=== PATIENT | male | born 1960 | race Caucasian/White ===

== ENCOUNTER → 2017-02-24 | Outpatient (CLI) | payer OTHER ==
[2017-02-24 13:35] VITALS: BP 154/93; PULSE 62; RESP 16; TEMP 97.6
--- NOTE | 2017-02-25 08:37 | P.CONS ---
History of Present Illness - Reason for Consult Consult date: 02/24/17 - History of Present Illness The initial consultation visit for this 56 years old male with a chronic history of severe low back pain and neck pain, pain in the low back area more intense and radiated to the posterior lateral aspect of the lower extremity, with occasional numbness, he had lumbar laminectomy surgery done by Dr. ho 2008, and after the surgery he continued to have, still the pain increased recently he denies any motor or sensory deficit he denies any lower night sweats and no change in the bowel movement or urination, muscle patient complaining of severe neck pain with radiation to the upper extremity with some numbness and tingling sensation Past Medical History Past Medical History: Hyperlipidemia, Hypertension Additional Past Medical History / Comment(s): CHRONIC BACK PAIN. Hx of kidney stones. Gout - 2010 History of Any Multi-Drug Resistant Organisms: None Reported Past Surgical History: Back Surgery, Hernia Repair, Orthopedic Surgery, Tonsillectomy Additional Past Surgical History / Comment(s): back surgery (laminectomy L-5, S -1 - right side), umbilical hernia. Ankle ORIF left and right Past Anesthesia/Blood Transfusion Reactions: No Reported Reaction Smoking Status: Current every day smoker Medications and Allergies Home Medications Medication Instructions Recorded Confirmed Type Fenofibrate [Lofibra] 54 mg PO DAILY 05/18/14 02/24/17 History Lisinopril [Zestril] 30 mg PO QAM 05/18/14 02/24/17 History Simvastatin [Zocor] 10 mg PO DAILY 05/18/14 02/24/17 History amLODIPine [Norvasc] 2.5 mg PO QAM 05/18/14 02/24/17 History amLODIPine [Norvasc] 5 mg PO HS 05/18/14 02/24/17 History Ibuprofen [Motrin] 800 mg PO Q8HR PRN 05/23/14 02/24/17 History Allergies Allergy/AdvReac Type Severity Reaction Status Date / Time aspirin Allergy Rash/Hives Verified 05/23/14 13:20 Physical Exam Vitals: Vital Signs Temp Pulse Resp BP Pulse Ox 02/24/17 13:29 97.6 F 62 16 154/93 96 Social history : smoker , NO ETOH , NO Illegal drug Review of Systems : 1- Constitutional : no chills , no fever , no night sweats , 2- Ears : no ear discharge , no change in hearing 3-Nose, Mouth ,Throat ; no bleeding gums, no sore throat , no epistaxis , 4-Cardiovascular : Denies chest pain, , no orthopnea , no palpitation 5-Respiratory : Denies cough , no dyspnea , no hemoptysis 6-Gastrointestinal :, no change in bowel habits , no coffee- ground emesis . 7-Genitourinary : No hematuria , no discharge , no incontinence, 8-Musculoskeletal : No gait dysfunction , report low back pain , and neck pain , 9- Neurological : no ataxia , no tremor , no sezure , 10-Psychatric , no suicidal ideation no hallucination 11- Endocrine : no cold intolerence , no polyuria , no polydypsia , 12-Hematologic : no easy bleeding , no easy brusing , 13-Allergic / immunology : no angioedema , no wheezing ,no allergic rhinitis 14-Integumentary : no brttle nails , no change hair / nails , no foot/leg ulcers . Physical Examinations : 1-Constitutional : Cooperative , not in acute distress . 2-HEENT : nech ; supple , no Lymphadenopathy , no Thyromegaly , :eyes , no icterus, no photophobia . ENT : , normal oropharynx , no Thrush 3- Respiratory : Chest clear to auscultations Bilaterally , no wheezing . 4- Cardiovascular : regular rate and rhythem , S1 , S2 , no S3 , no S4. 5- Gastrointestinal: abdomen soft no tenderness , no organomegally . 6- Genitourinary : Defferred . 7-Integumentary : No cellulitis , no ulcers , normal skin turgor , no cyanotic . 8- neurologic : Cranial nerve II to XII intact , no focal neurological deffecit 9-psychatric : alert , oriented X 3 , appropriate affect , intact judgment and insight . 10-Lymphatic : no Lymphadenopathy. 11- musculoskeltal: normal gait Cervical Spine motor stregnth in the deltoid and biceps, normal right side , normal Left side motor stregnth biceps and the wrist extensors normal right side ,normal left side . motor stregnth in the triceps muscle . normal Right side , normal Left side deep tendon reflexes normal at the biceps , normal at Brachioradialis , normal at triceps. positive cervical facet loading test . Lumber spine moter stegnth lower extremities ,thigh and legs 5/5 Right side , 5/5 Left side deep tendon reflexes : normal Knee Jerk , normal ankle Jerk positive lumber facet Loading Test Range of motion of the lumbar spine Flexion 30 degrees, extension 10 degrees strait leg raising test , positive at 30 degree Fabere test positive RT and positive LT . Assessment and Plan Plan: Assessment and plan= chronic low back pain secondary to , lumbar spondylosis with lumbar facet arthropathy , failed back surgery syndrome and lumbar area Chronic neck pain secondary to cervical spondylosis. Patient had more pain in the lumbar area , and he wished to start the treatment of the lumbar spine, patient could benefit from diagnostic medial branch block lumbar area at L3/L4 5/L5-S1 with done diagnostic block twice and if he had more than 50% improvement and we will proceed with a radiofrequency ablation of the medial branch lumbar area
== END | disposition home or self-care (01) ==
LOC: PNWHC3 13:15
PROVIDERS: ATTEND Specialist
DX: M47.816 Spondylosis without myelopathy or radiculopathy, lumbar region (principal); M47.812 Spondylosis without myelopathy or radiculopathy, cervical region; M46.86 Other specified inflammatory spondylopathies, lumbar region; F17.200 Nicotine dependence, unspecified, uncomplicated; E78.5 Hyperlipidemia, unspecified; I10 Essential (primary) hypertension; Z88.6 Allergy status to analgesic agent; Z79.1 Long term (current) use of non-steroidal anti-inflammatories (NSAID); Z79.899 Other long term (current) drug therapy
CPT/HCPCS: 99201

== ENCOUNTER 2017-03-23 06:34 | Day surgery (SDC) | payer OTHER ==
[2017-03-22 10:56] VITALS: BMI 39.0
[2017-03-23 06:53] VITALS: TEMP 97.5
[2017-03-23] MEDS ORDERED: LACTATED RINGERS 1,000 ML IV ONE (06:55)
[2017-03-23] MEDS ORDERED: LIDOCAINE 1% 20 ML VIAL (10MG/ML) FOR IV START INTRADERMA ONE (06:55)
[2017-03-23] MEDS ORDERED: LACTATED RINGERS 1,000 ML IV SCH (07:15)
--- NOTE | 2017-03-23 07:47 | P.PCN ---
Date of Procedure: 03/23/17 Surgeon: Donnie Yanes Pathology: none sent Condition: stable Disposition: PACU Description of Procedure: PREOPERATIVE DIAGNOSIS: L3-L4, L4-L5, and L5-S1 spondylosis without myelopathy and facet arthropathy. POSTOPERATIVE DIAGNOSIS: L3-L4, L4-L5, and L5-S1 spondylosis without myelopathy and facet arthropathy. PROCEDURE DESCRIPTION: Patient presents for L3-L4, L4-L5 and L5-S1 diagnostic medial branch blocks under fluoroscopic guidance. The procedure is performed using fluoroscopic guidance during needle placement to assure proper position and maximize safety. ANESTHESIA: Local with 1% lidocaine; conscious sedation EBL: Minimal PROCEDURE INDICATION: Patient with lumbar facet arthropathy signs and symptoms unresponsive to conservative therapy, here for diagnostic medial branch block # 1. Pt does not take any blood thinning medications. PROCEDURE DESCRIPTION: The patient was seen and identified in the preoperative area. Risks, benefits, complications, and alternatives were discussed with the patient (including but not limited to incomplete pain relief, bleeding, infection, nerve damage, and allergies to medications), the patient agreed to proceed with the procedure and signed the consent after all questions were answered. Patient was taken to the OR and time out was completed to verify proper patient, position, laterality of pain, and allergies. Pt was placed in the prone position and a pillow was placed under the abdomen to reduce lumbar lordosis. The lumbosacral area was prepped and draped in the usual sterile fashion. Using oblique fluoroscopy, the eye of the "Melchor dog" of right L4 vertebral body, which corresponds to the path of the medial branch originating from the level above, which is L3 in this case, was identified. Subsequently, a 22-gauge 3.5-inch spinal needle was inserted under fluoroscopic guidance toward the eye of the "Melchor dog" of the right L4 vertebral body, corresponding to the junction of the superior articular process and the transverse process of the pedicle of the same level. After needle tip confirmation on lateral view and after negative aspiration for CSF and blood and without paresthesias, 1 mL of a 6 ml solution of 0.5% preservative-free bupivacaine and 40 mg Kenalog was injected. Subsequently the needle was withdrawn intact and the same procedure was repeated for the right L4, right L5, left L3, left L4, and left L5 medial branches which together with right L3 medial branch correspond to the sensory innervation of the bilateral L3-L4, L4-L5, and L5-S1 facet joints. Needle was withdrawn intact after each injection. At the end of the procedure, the skin was cleansed and bandages were applied. COMPLICATIONS: None. DISPOSITION/PLAN: The patient taken to the recovery area after the procedure in a stable condition for observation. Patient was reexamined prior to discharge and there were no issues. Patient was discharged home, accompanied by an adult, after meeting discharged criteria. Discharge instructions were give to the patient by the staff. Patient was specifically instructed not to drive today and to rest for the rest of the day. If relief, we will plan for repeat L3-S1 LMBB in 3-4 weeks.
[2017-03-23 08:12] VITALS: BP 117/77; PULSE 56; RESP 18
[2017-03-23] MEDS ORDERED: IV FLUID CONTINUATION 1,000 ML IV ONE (08:12)
--- NOTE | 2017-03-23 08:35 | FL ---
EXAMINATION TYPE: FL guided pain mgmt statistic DATE OF EXAM: 03/23/2017 HISTORY: Pain 17 sec fl time used during bilateral facets
== END 2017-03-23 08:17 | disposition home or self-care (01) ==
LOC: ORPAIN 06:34
PROVIDERS: ATTEND Anesthesiology
DX: M47.816 Spondylosis without myelopathy or radiculopathy, lumbar region (principal); M47.817 Spondylosis without myelopathy or radiculopathy, lumbosacral region; E78.5 Hyperlipidemia, unspecified; I10 Essential (primary) hypertension; F17.200 Nicotine dependence, unspecified, uncomplicated; Z79.899 Other long term (current) drug therapy; Z88.6 Allergy status to analgesic agent; G89.29 Other chronic pain
CPT/HCPCS: 64493; 64494; 64495; 99152; J2250; J3301